=== PATIENT | male | born 1990 | race Caucasian/White ===

== ENCOUNTER 2020-08-18 17:48 | Emergency (ER) | payer OTHER, SELFPAY ==
--- NOTE | ~2020-08-18 | CT_ITS ---
EXAMINATION: CT ABDOMEN AND PELVIS WITH CONTRAST CLINICAL INFORMATION: Abdominal pain COMPARISON: None TECHNIQUE: Multidetector volumetric images were obtained from the superior aspect of the liver through the pubic symphysis following administration 85 mL of Omnipaque 350 intravenous contrast. Sagittal and coronal reformatted images were obtained on the technologist's workstation. Oral contrast: No This CT examination was performed using dose optimization techniques as appropriate, variously including the following: *Automated exposure control *Adjustment of mA and/or kV according to patient size (this includes techniques or standardized protocols for targeted exams where dose is matched to indication/reason for exam; i.e. extremities or head) *Use of iterative reconstruction technique DLP: 550 mGy-cm FINDINGS: LUNG BASES: The visualized lung bases are unremarkable. LIVER, GALLBLADDER, AND BILIARY TREE: The liver is normal in size, shape, and attenuation. No focal hepatic lesion or biliary ductal dilatation is present. : Unremarkable. PANCREAS: Unremarkable. SPLEEN: Unremarkable. ADRENAL GLANDS: Unremarkable. KIDNEYS AND URETERS: The kidneys are normal in size, shape, and attenuation. Subcentimeter cyst present in the lateral interpolar cortex of the left kidney. No hydronephrosis, hydroureter, or calculi seen. No perinephric stranding. BLADDER: Unremarkable. GASTROINTESTINAL TRACT: No intestinal obstruction or inflammation. Normal appendix. Intramural fatty deposition present within the ascending colon. Remainder of the colon unremarkable. ABDOMINAL WALL: No significant hernia is appreciated. LYMPH NODES: Normal. VASCULAR: Unremarkable. PELVIC VISCERA: Unremarkable. OSSEOUS STRUCTURES: Unremarkable. CT/CT abdomen pelvis w con IMPRESSION: No etiology for the patient's abdominal pain is identified. Nonspecific intramural fatty deposition within the ascending colon. This can be seen as a normal finding in the setting of obesity, but can also been seen in association with inflammatory bowel disease.
[2020-08-18 17:55] VITALS: BP 155/88; PULSE 100; RESP 18; TEMP 36.6; O2SAT 99
--- NOTE | 2020-08-18 18:41 | ED_ITS ---
HPI - Abdominal Pain General Chief Complaint: Abdominal Pain Stated Complaint: Abdominal Pain Time Seen by Provider: 08/18/20 18:35 Source: patient Mode of arrival: ambulatory Limitations: no limitations History of Present Illness HPI narrative: 30-year-old male with remote history of H pylori in the past otherwise no past medical surgical history presenting with complaint of 3 days of epigastric/left upper quadrant abdominal pain with associated nausea and vomiting. States he is status post treatment for H pylori x2 and unsure if resolved or not. MD elicited complaint: abdominal pain Onset (ago): day(s) Pain Consistency: constant Location: epigastric and LUQ Severity: moderate Quality: aching Radiation: L flank Exacerbating factors: eating Relieving factors: nothing Associated symptoms: nausea and vomiting (Sometimes) Related Data Previous Rx's Medication Instructions Recorded dicyclomine 20 mg PO BID #14 tab 08/18/20 omeprazole magnesium [Prilosec OTC] 20 mg PO DAILY #14 tab 08/18/20 Allergies Allergy/AdvReac Type Severity Reaction Status Date / Time No Known Allergies Allergy Unverified 02/16/20 19:47 Review of Systems Review of Systems Constitutional: No Weight loss, No Fever, No Chills, No Night Sweats, No Fatigue, No Malaise ENT/Mouth: No Hearing loss, No Ear Pain, No Nasal Congestion, No Sinus Pain, No Hoarseness, No sore throat, No Rhinorrhea, No Swallowing Difficulty Eyes: No Eye Pain, No Swelling, No Redness, No Foreign Body, No Discharge, No Vision Changes Cardiovascular: No Chest Pain, No SOB, No Dyspnea on Exertion, No Orthopnea, No Edema, No Palpitations Respiratory: No Cough, No Sputum, No Wheezing, No Smoke Exposure, No Dyspnea Gastrointestinal: As noted per HPI, No Hematochezia, No Melena Genitourinary: No Dysuria, No Urinary Frequency, No Hematuria, No Urinary Incontinence, No Urgency, No Flank Pain, No Urinary Flow Changes, No Hesitancy Musculoskeletal: No joint pain, No Myalgias, No Joint Swelling Skin: No Skin Lesions, No rash Neuro: No Weakness, No Numbness, No Paresthesias, No Loss of Consciousness, No Dizziness, No Headache Psych: No Social Issues Heme/Lymph: No Bruising, No Bleeding,No Lymphadenopathy Endocrine: No Polyuria, No Polydipsia, No Temperature Intolerance Yes all other systems are reviewed and are negative Physical Exam Vital Signs: Vital Signs: Last Vital Signs Temp 98.1 F 08/18/20 20:27 Pulse 83 08/18/20 20:27 Resp 18 08/18/20 20:27 BP 142/89 H 08/18/20 20:27 Pulse Ox 98 08/18/20 20:27 Body Mass Index 25.0 Reviewed Const: General: cooperative and healthy appearing; No acute distress or intoxicated appearing Nutritional Appearance: average body habitus Orientation/consciousness: patient oriented x3 HENMT: Head: Yes normal to inspection Ears: hearing grossly normal bila terally Eyes: General: appearance normal, both eyes and all related structures Visual Gama: normal visual gama by confrontation Neck: Neck: Yes normal visual inspection, No positive Brudzinski's sign, No positive Kernig's sign and No tender Thyroid: Thyroid normal Chest: Chest palpation & inspection: normal inspection of the chest Resp: Effort & Inspection: normal respiratory effort Cardio: Jugular venous distension: no JVD Rhythm: regular rhythm Heart sounds: S1 normal heart sound present and S2 normal heart sound present GI: Inspection: Yes normal to inspection Palpation (GI): Soft to palpation and Tenderness to palpation present (GI) in the LUQ (Mild); with no rebound tenderness Percussion: Yes normal to percussion Auscultation: normal bowel sounds : General: Yes no CVA tenderness Back/Spine/Pelvis: Back: no CVA tenderness Skin: General skin exam: no rashes or lesions noted Neuro: General: patient oriented x3 Extrem: General: Yes normal to inspection Course Course Course Narrative: Labs overall reassuring. Abdominal/pelvis CT with IV contrast without any evidence of acute findings. Unable to provide stool specimen for analysis at this time will defer any additional antibiotics will trial of Bentyl and PPI outpatient order slip provided and will drop off a stool sample at the lab when he can provided. GI referral provided. Tolerating p.o. intake well. MDM - Abdominal Pain Lab Data Result diagrams: 08/18/20 19:21 08/18/20 19:21 Labs: Lab Results 08/18/20 08/18/20 08/18/20 Range/Units 19:21 19:21 19:21 WBC 6.7 (4.8-10.8) X10*3/uL RBC 5.90 H (4.60-5.80) X10*6/uL Hgb 16.9 (14.0-18.0) g/dl Hct 47.2 (42-52) % MCV 80.0 (80-98) fL MCH 28.6 (27.0-33.0) pg MCHC 35.8 (31.0-36.0) g/dl RDW 12.1 (11.0-16.0) % Plt Count 275 (160-400) X10*3/uL MPV 9.2 L (9.4-12.4) fL Immature Gran % (Auto) 0.3 (0.0-0.4) % Neut % (Auto) 58.7 (45-73) % Lymph % (Auto) 28.0 (20-40) % [place] % (Auto) 9.1 (2-11) % Eos % (Auto) 3.6 (0-4) % Baso % (Auto) 0.3 (0-2) % Lymph # (Auto) 1.9 (1.2-4.9) X10*3/uL [place] # (Auto) 0.6 (0.1-1.2) X10*3/uL Eos # (Auto) 0.2 (0.0-0.4) X10*3/uL Baso # (Auto) 0.0 (0.0-0.2) X10*3/uL Abs Immat Gran (auto) 0.02 (0.00-0.03) X10*3/uL Absolute Neuts (auto) 3.9 (2.0-8.3) X10*3/uL Absolute Nucleated RBC 0.000 (0.0-0.012) X10*3/uL Nucleated RBC % (auto) 0.0 (0.0-0.2) /100WBC Hold Blue Top SEE NOTE Sodium 140 (135-145) mmol/L Potassium 3.9 (3.3-5.1) mmol/L Chloride 104 (96-108) mmol/L Carbon Dioxide 30 H (22-29) mmol/L Anion Gap 10 L (12-20) BUN 13 (9-16) mg/dL Creatinine 1.03 (0.5-1.4) mg/dL Estim Creat Clear Calc 113.0 Estimated GFR > 60 Random Glucose 90 (60-115) mg/dL Calcium 8.3 L (8.4-10.2) mg/dL Total Bilirubin 0.8 (0.0-1.0) mg/dL AST 26 (5-37) U/L ALT 52 H (0-40) U/L Alkaline Phosphatase 76 (39-117) U/L Total Protein 5.6 L (6.5-8.0) g/dL Albumin 3.5 (3.5-5.0) g/dL Discharge Plan Discharge Clinical Impression: Abdominal pain Patient Disposition: Home, Self-Care Instructions: Abdominal Pain (ED) Additional Instructions: Please complete the stool studies Stat obtain stool sample at home as instructed and drop off at the lab Please follow-up with gastroenterology as discussed Return if any concerns or worsening symptoms Take medication prescribed Follow dietary precautions reviewed Thank you Prescriptions: New dicyclomine 20 mg tablet 20 mg PO BID Qty: 14 RF: 0 omeprazole magnesium [Prilosec OTC] 20 mg tablet,delayed release (DR/EC) 20 mg PO DAILY Qty: 14 RF: 0 Referrals: Jean-Claude Mcdermott MD [Physician] - 1 week Interventions: ED Discharge Assessment Last Done: 08/18/20 22:15 Discharge Date/Time: 08/18/20 22:15 [facility] Past Medical History Medical History (Updated 08/19/20 @ 00:00 by Frederic Del Valle) No known health problems Social History Social History Alcohol intake: never Smoking Status: Never smoker Use of substances other than those prescribed or required for medical reasons: No Advance Directives: No Advance Directives Information Provided: No
[2020-08-18 19:13] VITALS: BP 150/97; PULSE 95; RESP 16; TEMP 37.3; O2SAT 95; BMI 25.0
[2020-08-18 19:26] LABS: MANUAL DIFF FLAG NO
[2020-08-18 19:31] LABS: Basophils Percent Auto 0.3 % (0-2); Eosinophils Absolute Auto 0.2 X10*3/uL (0.0-0.4); Eosinophils Percent Auto 3.6 % (0-4); Hematocrit 47.2 % (42-52); Hemoglobin 16.9 g/dl (14.0-18.0); Imm Gran Abs Auto 0.02 X10*3/uL (0.00-0.03); Imm Gran Pct Auto 0.3 % (0.0-0.4); Lymphocytes Absolute Auto 1.9 X10*3/uL (1.2-4.9); Mean Corpuscular HGB Conc 35.8 g/dl (31.0-36.0); Mean Corpuscular Hemoglobin 28.6 pg (27.0-33.0); Mean Platelet Volume 9.2 fL (9.4-12.4); Monocytes Absolute Auto 0.6 X10*3/uL (0.1-1.2); Monocytes Percent Auto 9.1 % (2-11); Neutrophils Absolute Auto 3.9 X10*3/uL (2.0-8.3); Neutrophils Percent Auto 58.7 % (45-73); Platelet Count 275 X10*3/uL (160-400); Red Cell Distribution Width 12.1 % (11.0-16.0); White Blood Count 6.7 X10*3/uL (4.8-10.8)
[2020-08-18] MEDS: 0.9 % Sodium Chloride 1,000 ML 999 ML IV (19:32)
[2020-08-18 20:02] LABS: Alanine Aminotransferase 52 U/L (0-40); Albumin Level 3.5 g/dL (3.5-5.0); Alkaline Phosphatase 76 U/L (39-117); Aspartate Amino Transferase 26 U/L (5-37); Bilirubin Total 0.8 mg/dL (0.0-1.0); Blood Urea Nitrogen 13 mg/dL (9-16); Calcium 8.3 mg/dL (8.4-10.2); Estimated Glomerular Filt Rate > 60; Glucose Random 90 mg/dL (60-115); Total Protein 5.6 g/dL (6.5-8.0)
[2020-08-18 20:19] LABS: Anion Gap 10 (12-20); Carbon Dioxide 30 mmol/L (22-29); Chloride 104 mmol/L (96-108); Potassium 3.9 mmol/L (3.3-5.1); Sodium 140 mmol/L (135-145)
[2020-08-18 20:27] VITALS: BP 142/89; PULSE 83; RESP 18; TEMP 36.7; O2SAT 98
== END 2020-08-18 22:15 | disposition home or self-care (01) ==
PROVIDERS: Nurse Practitioner Primary Care; Emergency Provider Internal Medicine
DX: R10.12 Left upper quadrant pain (principal); R10.13 Epigastric pain; R11.2 Nausea with vomiting, unspecified; Z79.899 Other long term (current) drug therapy
CPT/HCPCS: 36415; 74177; 80053; 85025; 96360; 99284; Q9967